=== PATIENT | male | born 1995 | race Caucasian/White ===

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

== ENCOUNTER 2017-02-23 00:01 | Emergency (ER) | payer OTHER ==
[2017-02-23] MEDS ORDERED: Silver Sulfadiazine 1% Crm 50 GM Tube TOP ONE (00:13)
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
[2017-02-23 00:53] VITALS: BP 120/81
== END 2017-02-23 00:53 | disposition home or self-care (01) ==
LOC: MW.ED 00:01
DX: T23.172A Burn of first degree of left wrist, initial encounter (principal); T20.13XA Burn of first degree of chin, initial encounter; T31.0 Burns involving less than 10% of body surface; F17.210 Nicotine dependence, cigarettes, uncomplicated; X10.2XXA Contact with fats and cooking oils, initial encounter; Y93.G3 Activity, cooking and baking; Y99.0 Civilian activity done for income or pay; Z90.49 Acquired absence of other specified parts of digestive tract
CPT/HCPCS: 16000; 99283; A9270

== ENCOUNTER 2018-01-18 18:25 | Emergency (ER) | payer OTHER ==
[2018-01-18 18:42] VITALS: BP 132/76
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
[2018-01-18] MEDS ORDERED: Bacitracin Oint 1 GM U/D Packet TOP ONE (18:57)
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
--- NOTE | 2018-01-19 15:07 | CT ---
EXAM DATE: 01/18/18 PATIENT'S AGE: 22 Patient: RENE BOX Facility: [place], [place] Site . Site : 1995 Study: CT Head [id number]/3/2018 7:38:45 PM Ordering Physician: Doctor Chavarria Final Report: INDICATION: Trauma. TECHNIQUE: CT head without contrast. COMPARISON: None FINDINGS: CSF spaces: Within normal limits for age. Brain parenchyma: The dinero-white differentiation is normal. No sign of mass, hemorrhage, or midline shift. Skull base and calvarium: The visualized paranasal sinuses and mastoid air cells demonstrate no acute or significant findings. The visualized orbits are grossly unremarkable. No skull fractures. IMPRESSION: Unremarkable noncontrast head CT. Dictated by Geoffrey Sahu MD @ 01/18/2018 8:15:52 PM Dictated by: Geoffrey Sahu MD @ 01/18/2018 20:15:59 (Electronic Signature) Report Signed by Proxy. TRAE
--- NOTE | 2018-01-19 15:09 | CT ---
EXAM DATE: 01/18/18 PATIENT'S AGE: 22 Patient: RENE BOX Facility: [place], [place] Site . Site : 1995 Study: CT Spine Cervical [id number]/3/2018 7:39:07 PM Ordering Physician: Doctor Chavarria Final Report: INDICATION: Trauma TECHNIQUE: CT cervical spine without contrast. COMPARISON: None FINDINGS: Vertebral alignment: Alignment is normal. Vertebrae: There are no fractures or suspicious bony lesions. Discs and facet joints: Disc spaces and facets are within normal limits. Extraspinal findings: Prevertebral soft tissues, visualized airway, and visualized lungs are unremarkable. IMPRESSION: Unremarkable cervical spine CT. No evidence of acute cervical spine trauma. Dictated by Geoffrey Sahu MD @ 01/18/2018 8:12:32 PM Dictated by: Geoffrey Sahu MD @ 01/18/2018 20:12:35 (Electronic Signature) Report Signed by Proxy. TRAE
== END 2018-01-18 20:30 | disposition home or self-care (01) ==
LOC: MW.ED 18:25
DX: S01.01XA Laceration without foreign body of scalp, initial encounter (principal); S09.90XA Unspecified injury of head, initial encounter; S01.312A Laceration without foreign body of left ear, initial encounter; S40.212A Abrasion of left shoulder, initial encounter; S20.312A Abrasion of left front wall of thorax, initial encounter; W22.8XXA Striking against or struck by other objects, initial encounter; V29.88XA Motorcycle rider (driver) (passenger) injured in other specified transport accidents, initial encounter
CPT/HCPCS: 12001; 70450; 70450-26; 71046; 71046-26; 72125; 72125-26; 73080-26-LT; 73080-LT; 99283; 99284-25

== ENCOUNTER 2018-02-08 03:00 | Observation (INO) | payer OTHER ==
[2018-02-08] MEDS ORDERED: Sodium Chloride 0.9% 2.5 ML Syringe FLUSH PRN (03:11)
[2018-02-08] MEDS ORDERED: Sodium Chloride 0.9% 1,000 ML IV ONE (03:11)
[2018-02-08] MEDS ORDERED: Sodium Chloride 0.9% 10 ML Syringe FLUSH PRN (03:11)
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
[2018-02-08 03:45] LABS: CHLORIDE,CL 107 mmol/L (98-107); SODIUM,NA 144 mmol/L (136-148)
[2018-02-08] MEDS ORDERED: Ketorolac 30 MG/ML SDV IVPUSH ONE (04:07)
[2018-02-08] MEDS ORDERED: Iopamidol 755 MG/ML 500 ML Multipack Bottle IVPUSH STA (04:32)
[2018-02-08] MEDS: prednisoLONE Acetate 1% Ophth Susp 5 ML Bottle EYERT SCH ×3 (04:35→18:55)
[2018-02-08] MEDS ORDERED: Atropine 1% Ophth Soln 5 ML BOTTLE EYERT ONE (05:45)
[2018-02-08] MEDS: Lactated Ringers 1,000 ML IV SCH ×3 (06:19→22:30)
[2018-02-08] MEDS: Acetaminophen 325 MG Tab PO PRN ×2 (08:19→18:56)
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
[2018-02-09] MEDS: prednisoLONE Acetate 1% Ophth Susp 5 ML Bottle EYERT SCH ×2 (00:32→06:06)
[2018-02-09] MEDS: Lactated Ringers 1,000 ML IV SCH (06:42)
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
[2018-02-09 08:13] VITALS: BP 139/66
[2018-02-09] MEDS ORDERED: Atropine 1% Ophth Soln 5 ML BOTTLE EYERT SCH (09:00)
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
== END 2018-02-09 10:15 | disposition home or self-care (01) ==
LOC: MW.ED 03:00 → MW.MS 03:31
PROVIDERS: ADMIT Surgery; ATTEND Surgery
DX: H57.11 Ocular pain, right eye (principal); H54.61 Unqualified visual loss, right eye, normal vision left eye; M43.8X4 Other specified deforming dorsopathies, thoracic region; M54.5 Low back pain; Y90.5 Blood alcohol level of 100-119 mg/100 ml; V89.2XXA Person injured in unspecified motor-vehicle accident, traffic, initial encounter; Z79.899 Other long term (current) drug therapy
CPT/HCPCS: 70450; 70486; 71260; 72125; 74177; 80053; 80305; 81001; 83690; 85025; 85610; 93005; 96361; 96374; 99285; A9270; G0378; G0480; J1885; J7040; J7120; Q9967; 72131-26

== ENCOUNTER 2020-01-23 13:35 | Emergency (ER) | payer BC, OTHER ==
[2020-01-23 13:48] VITALS: BP 109/52; PULSE 66
[2020-01-23] MEDS ORDERED: Octyl 2-Cyanoacrylate 1 Tube TOP ONE (13:54)
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
== END 2020-01-23 14:26 | disposition home or self-care (01) ==
LOC: MW.ED 13:35
DX: S01.412A Laceration without foreign body of left cheek and temporomandibular area, initial encounter (principal); F17.210 Nicotine dependence, cigarettes, uncomplicated; W26.0XXA Contact with knife, initial encounter
CPT/HCPCS: 12011; 99282; A9270

== ENCOUNTER 2021-03-31 04:06 | Emergency (ER) | payer BC ==
--- NOTE | 2021-03-31 04:26 | EDM.PDOCBH ---
ED HPI GENERAL MEDICAL PROBLEM - General Chief Complaint: Behavioral/Psych Stated Complaint: MENTAL HEALTH Time Seen by Provider: 03/31/21 04:07 Source of Information: Reports: Patient History Limitations: Reports: No Limitations - History of Present Illness INITIAL COMMENTS - FREE TEXT/NARRATIVE: Patient is a 25-year-old male presents today for homicidal ideations. Patient's been having some issues at home with his girlfriend he thought about harming himself or her today. He has been hearing voices for the past 2 months been telling him to do various things he really cannot make out. He denies having any fever chills nausea vomiting. He states he took Adderall 2 days ago but not any drugs or alcohol today. - Related Data Allergies Allergy/AdvReac Type Severity Reaction Status Date / Time No Known Allergies Allergy Verified 03/31/21 04:30 Home Meds: Home Meds . [No Known Home Meds] 09/30/16 [History] Past Medical History - Past Health History Medical/Surgical History: Denies Medical/Surgical History HEENT History: Reports: None Cardiovascular History: Reports: None Respiratory History: Reports: None Gastrointestinal History: Reports: None Genitourinary History: Reports: None Musculoskeletal History: Reports: None Neurological History: Reports: None Psychiatric History: Reports: None Endocrine/Metabolic History: Reports: None Hematologic History: Reports: None Immunologic History: Reports: None Oncologic (Cancer) History: Reports: None Dermatologic History: Reports: None - Infectious Disease History Infectious Disease History: Reports: None - Past Surgical History Head Surgeries/Procedures: Reports: None GI Surgical History: Reports: Appendectomy Dermatological Surgical History: Reports: None Social & Family History - Family History Family Medical History: No Pertinent Family History - Caffeine Use Caffeine Use: Reports: None Caffeine Use Comment: 3 cups ED ROS GENERAL - Review of Systems Review Of Systems: See Below Constitutional: Reports: No Symptoms HEENT: Reports: No Symptoms Respiratory: Reports: No Symptoms Cardiovascular: Reports: No Symptoms Endocrine: Reports: No Symptoms GI/Abdominal: Reports: No Symptoms : Reports: No Symptoms Musculoskeletal: Reports: No Symptoms Skin: Reports: No Symptoms Neurological: Reports: No Symptoms Psychiatric: Reports: Homicidal Ideation, Suicidal Ideation Hematologic/Lymphatic: Reports: No Symptoms Immunologic: Reports: No Symptoms ED EXAM, BEHAVIORAL HEALTH - Physical Exam Exam: See Below Exam Limited By: No Limitations General Appearance: Alert, WD/WN, No Apparent Distress Eye Exam: Bilateral Eye: EOMI, PERRL Head: Atraumatic Respiratory/Chest: No Respiratory Distress, Lungs Clear, Normal Breath Sounds Cardiovascular: Normal Peripheral Pulses, Regular Rate, Rhythm GI/Abdominal: Normal Bowel Sounds, Soft, Non-Tender Neurological: Alert, Normal Mood/Affect, CN II-XII Intact, Oriented x 3 Psychiatric: Alert COURSE, BEHAVIORAL HEALTH COMP - Course Vital Signs: Last Vital Signs Temp 97.2 F 03/31/21 05:50 Pulse 74 03/31/21 06:20 Resp 16 03/31/21 06:20 BP 104/62 03/31/21 06:20 Pulse Ox 95 03/31/21 06:20 Orders, Labs, Meds: Active Orders 24 hr Category Date Time Status Suicide Precautions [RC] .Per Facility Policy Care 03/31/21 04:43 Active Laboratory Tests 03/31/21 03/31/21 03/31/21 Range/Units 04:30 04:30 04:35 WBC 11.46 H (4.0-11.0) K/uL RBC 5.23 (4.50-5.90) M/uL Hgb 15.9 (13.0-17.0) g/dL Hct 44.6 (38.0-50.0) % MCV 85.3 (80.0-98.0) fL MCH 30.4 (27.0-32.0) pg MCHC 35.7 (31.0-37.0) g/dL RDW Std Deviation 42.3 (28.0-62.0) fl RDW Coeff of Soc[place] 14 (11.0-15.0) % Plt Count 287 (150-400) K/uL MPV 8.80 (7.40-12.00) fL Neut % (Auto) 64.8 (48.0-80.0) % Lymph % (Auto) 20.7 (16.0-40.0) % [place] % (Auto) 9.4 (0.0-15.0) % Eos % (Auto) 4.5 (0.0-7.0) % Baso % (Auto) 0.6 (0.0-1.5) % Neut # (Auto) 7.4 H (1.4-5.7) K/uL Lymph # (Auto) 2.4 (0.6-2.4) K/uL [place] # (Auto) 1.1 H (0.0-0.8) K/uL Eos # (Auto) 0.5 (0.0-0.7) K/uL Baso # (Auto) 0.1 (0.0-0.1) K/uL Nucleated RBC % 0.0 /100WBC Nucleated RBCs # 0 K/uL Sodium (136-148) mmol/L Potassium (3.5-5.1) mmol/L Chloride (98-107) mmol/L Carbon Dioxide (21.0-32.0) mmol/L BUN (7.0-18.0) mg/dL Creatinine (0.8-1.3) mg/dL Est Cr Clr Drug Dosing mL/min Estimated GFR (MDRD) ml/min Glucose (74-106) mg/dL Calcium (8.5-10.1) mg/dL Total Bilirubin (0.2-1.0) mg/dL AST (15-37) IU/L ALT (14-63) IU/L Alkaline Phosphatase (46-116) U/L Total Protein (6.4-8.2) g/dL Albumin (3.4-5.0) g/dL Globulin (2.6-4.0) g/dL Albumin/Globulin Ratio (0.9-1.6) Salicylates (0-20) mg/dL Urine Opiates Screen NEGATIVE (NEGATIVE) Ur Oxycodone Screen NEGATIVE (NEGATIVE) Urine Methadone Screen NEGATIVE (NEGATIVE) Acetaminophen ug/mL Ur Barbiturates Screen NEGATIVE (NEGATIVE) Ur Phencyclidine Scrn NEGATIVE (NEGATIVE) Ur Amphetamine Screen NEGATIVE (NEGATIVE) U Methamphetamines Scrn NEGATIVE (NEGATIVE) U Benzodiazepines Scrn NEGATIVE (NEGATIVE) U Cocaine Metab Screen POSITIVE (NEGATIVE) U Marijuana (THC) Screen NEGATIVE (NEGATIVE) Ethyl Alcohol mg/dL SARS-CoV-2 RNA (NIK) NEGATIVE (NEGATIVE) 03/31/21 Range/Units 04:35 WBC (4.0-11.0) K/uL RBC (4.50-5.90) M/uL Hgb (13.0-17.0) g/dL Hct (38.0-50.0) % MCV (80.0-98.0) fL MCH (27.0-32.0) pg MCHC (31.0-37.0) g/dL RDW Std Deviation (28.0-62.0) fl RDW Coeff of [place] (11.0-15.0) % Plt Count (150-400) K/uL MPV (7.40-12.00) fL Neut % (Auto) (48.0-80.0) % Lymph % (Auto) (16.0-40.0) % [place] % (Auto) (0.0-15.0) % Eos % (Auto) (0.0-7.0) % Baso % (Auto) (0.0-1.5) % Neut # (Auto) (1.4-5.7) K/uL Lymph # (Auto) (0.6-2.4) K/uL [place] # (Auto) (0.0-0.8) K/uL Eos # (Auto) (0.0-0.7) K/uL Baso # (Auto) (0.0-0.1) K/uL Nucleated RBC % /100WBC Nucleated RBCs # K/uL Sodium 142 (136-148) mmol/L Potassium 3.7 (3.5-5.1) mmol/L Chloride 103 (98-107) mmol/L Carbon Dioxide 28.1 (21.0-32.0) mmol/L BUN 14 (7.0-18.0) mg/dL Creatinine 1.3 (0.8-1.3) mg/dL Est Cr Clr Drug Dosing 82.21 mL/min Estimated GFR (MDRD) > 60.0 ml/min Glucose 91 (74-106) mg/dL Calcium 8.7 (8.5-10.1) mg/dL Total Bilirubin 0.5 (0.2-1.0) mg/dL AST 8 L (15-37) IU/L ALT 16 (14-63) IU/L Alkaline Phosphatase 78 (46-116) U/L Total Protein 7.3 (6.4-8.2) g/dL Albumin 4.4 (3.4-5.0) g/dL Globulin 2.9 (2.6-4.0) g/dL Albumin/Globulin Ratio 1.5 (0.9-1.6) Salicylates 3.3 (0-20) mg/dL Urine Opiates Screen (NEGATIVE) Ur Oxycodone Screen (NEGATIVE) Urine Methadone Screen (NEGATIVE) Acetaminophen <2.0 ug/mL Ur Barbiturates Screen (NEGATIVE) Ur Phencyclidine Scrn (NEGATIVE) Ur Amphetamine Screen (NEGATIVE) U Methamphetamines Scrn (NEGATIVE) U Benzodiazepines Scrn (NEGATIVE) U Cocaine Metab Screen (NEGATIVE) U Marijuana (THC) Screen (NEGATIVE) Ethyl Alcohol 114 mg/dL SARS-CoV-2 RNA (NIK) (NEGATIVE) Medical Clearance: 03/31/21 06:52 Is been medically cleared is been accepted to [facility] by Dr. Ch. Departure - Departure Time of Disposition: 06:53 Disposition: DC/Tfer to Psych Hosp/Unit [address] Condition: Good Clinical Impression: Suicidal ideation - Discharge Information *PRESCRIPTION DRUG MONITORING PROGRAM REVIEWED*: Not Applicable *COPY OF PRESCRIPTION DRUG MONITORING REPORT IN PATIENT EDGARDO: Not Applicable Instructions: Suicidal Feelings: How to Help Yourself Referrals: PCP,None [Primary Care Provider] - Forms: ED Department Discharge Sepsis Event Note (ED) - Focused Exam Vital Signs: Vital Signs Temp Pulse Resp BP Pulse Ox 03/31/21 06:20 74 16 104/62 95 03/31/21 05:50 97.2 F 79 16 98/57 L 95 03/31/21 05:20 78 16 106/64 95 03/31/21 04:50 66 16 113/68 96 03/31/21 04:15 97 F 74 18 126/76 97 - My Orders Last 24 Hours: My Active Orders 03/31/21 04:43 Suicide Precautions [RC] .Per Facility Policy - Assessment/Plan Last 24 Hours: My Active Orders 03/31/21 04:43 Suicide Precautions [RC] .Per Facility Policy Plan: Patient is a 25-year-old male presents today for suicide homicide ideation. Patient has thoughts of harming himself and his girlfriend. Will medically clear patient and likely transfer to a psych facility.
[2021-03-31 04:58] LABS: ACETAMINOPHEN <2.0 ug/mL; BLOOD UREA NITROGEN,BUN 14 mg/dL (7.0-18.0); CARBON DIOXIDE,CO2 28.1 mmol/L (21.0-32.0); CHLORIDE,CL 103 mmol/L (98-107); GLUCOSE RANDOM 91 mg/dL (74-106); POTASSIUM,K 3.7 mmol/L (3.5-5.1); SODIUM,NA 142 mmol/L (136-148)
[2021-03-31 07:51] VITALS: BP 96/51; PULSE 88
== END 2021-03-31 08:04 ==
LOC: MW.ED 04:06
DX: R45.851 Suicidal ideations (principal); R45.850 Homicidal ideations; Z20.822 Contact with and (suspected) exposure to COVID-19
CPT/HCPCS: 36415; 80053; 80143; 80179; 80305-QW; 80307; 85025; 99285; U0002

== ENCOUNTER 2022-03-03 23:50 | Emergency (ER) | payer OTHER, BC ==
[2022-03-04] MEDS ORDERED: Propofol 200 MG/20 ML SDV ONE (00:13)
[2022-03-04] MEDS ORDERED: propofoL 100 ML ONE (00:13)
[2022-03-04] MEDS ORDERED: Propofol 200 MG/20 ML SDV IVPUSH ONE (00:19)
[2022-03-04] MEDS ORDERED: propofoL 100 ML IV SCH (00:19)
[2022-03-04] MEDS ORDERED: Sodium Chloride 0.9% 2.5 ML Syringe FLUSH PRN (00:23)
[2022-03-04] MEDS ORDERED: Sodium Chloride 0.9% 10 ML Syringe FLUSH PRN (00:23)
[2022-03-04 00:25] VITALS: BP 134/88; PULSE 81
[2022-03-04 00:48] LABS: CARBON DIOXIDE,CO2 24.5 mmol/L (21.0-32.0); POTASSIUM,K 3.1 mmol/L (3.5-5.1)
== END 2022-03-04 00:44 ==
LOC: MW.ED 23:50
DX: S00.81XA Abrasion of other part of head, initial encounter (principal); V29.9XXA Motorcycle rider (driver) (passenger) injured in unspecified traffic accident, initial encounter
CPT/HCPCS: 31500; 36415; 43752; 71045; 72170; 74018; 80053; 80307; 85025; 85610; 86850; 86900; 86901; 99285; J2704

== ENCOUNTER 2023-10-05 14:27 | Emergency (ER) | payer BC ==
[2023-10-05 14:57] VITALS: PULSE 78
[2023-10-05] MEDS: Lidocaine 1% 5 ML VIAL INJECT ONE (15:24)
[2023-10-05] MEDS: Bupivacaine 0.5% 10 ML SDV INJECT ONE (15:24)
[2023-10-05 16:09] VITALS: BP 131/78
== END 2023-10-05 16:08 | disposition home or self-care (01) ==
LOC: MW.ED 14:27
DX: S02.5XXA Fracture of tooth (traumatic), initial encounter for closed fracture (principal); F17.210 Nicotine dependence, cigarettes, uncomplicated; W54.1XXA Struck by dog, initial encounter; Z90.49 Acquired absence of other specified parts of digestive tract
CPT/HCPCS: 64400; 99282; J0665; 99283; J3490

== ENCOUNTER 2023-11-16 22:15 | Emergency (ER) | payer BC ==
[2023-11-16] MEDS: Acetaminophen/HYDROcodone 325-5 MG Tab PO ONE (22:55)
[2023-11-16] MEDS: Clindamycin HCl 150 MG Cap PO ONE (22:56)
[2023-11-16 22:59] VITALS: BP 152/73; PULSE 84
== END 2023-11-16 22:59 | disposition home or self-care (01) ==
LOC: MW.ED 22:15
DX: K04.7 Periapical abscess without sinus (principal); Z79.899 Other long term (current) drug therapy
CPT/HCPCS: 99283; A9270